=== PATIENT | male | born 1940 | race Caucasian/White ===

== ENCOUNTER 2016-11-06 08:42 | Emergency (ER) | payer OTHER ==
[~2016-11-06] VITALS: Ht 175.3 cm; Wt 94.9 kg
[~2016-11-06 08:42] MED LIST: ASPIRIN325 MG PO; ATENOLOL25 MG PO; CIPRO750 MG PO; DOXYCYCLINE HY100 MG PO; FENOFIBRATE145 M1 PO; FISH OIL 1,2001 EAC5 PO; FLAGYL500 MG PO; GEMFIBROZIL600 MG PO; HYZAAR 100-21 TABLET PO; LOVASTATIN20 MG PO; MELOXICAM15 MG PO; MOTRIN600 MG PO; MULTIVITAMIN1 EAC1 PO; NORVASC5 MG PO; SIMVASTATIN40 M1 PO; SYMBICORT60 INHALAT IH; ULTRAM50 MG PO
[2016-11-06 09:49] LABS: EOSINOPHIL (%) 1.8 % (0-5); EOSINOPHIL COUNT 0.1 K/uL (0-0.3); HEMATOCRIT 42.9 % (38.0-50.0); IMMATURE GRANULOCYTE (%) 0.7 % (0.0-0.7); IMMATURE GRANULOCYTE COUNT 0.5 K/uL; LYMPHOCYTE COUNT 1.5 K/uL (1.0-2.8); MCH 30.9 PG (29.0-34.0); MCV 90.9 FL (86-99); MEAN PLAT.VOLUME 10.3 uM^3 (9.0-12.4); MONOCYTE (%) 8.8 % (3-12); MONOCYTE COUNT 0.7 K/uL (0-0.8); NEUTROPHIL (%) 68.4 % (45-76); NEUTROPHIL COUNT 5.3 K/uL (1.8-6.4); PLATELET COUNT 272 K/uL (156-360); RBC DIS.WIDTH-CV 12.9 % (11.8-14.6); RBC DIS.WIDTH-SD 42.3 % (39-53); RED BLOOD COUNT 4.72 M/uL (4.00-5.50); WHITE BLOOD COUNT 7.7 K/uL (4.1-10.2)
[2016-11-06 10:02] LABS: CHLORIDE 107 mEq/L (99-109); POTASSIUM 4.4 mEq/L (3.7-5.4); SODIUM 140 mEq/L (136-147)
[2016-11-06 10:05] LABS: GLUCOSE 108 mg/dL (70-99)
[2016-11-06 10:06] LABS: ANION GAP 10 MEQ/L (2-14)
[2016-11-06 10:07] LABS: TOTAL BILIRUBIN 0.5 mg/dL (0.0-1.0)
[2016-11-06 10:08] LABS: ALKALINE PHOSPHATASE 70 IU/L (3-129)
[2016-11-06 10:09] LABS: GFR ESTIMATE (CALCULATED) > 59 mL/min/
[2016-11-06 10:10] LABS: UREA NITROGEN (BUN) 21 mg/dL (9-23)
[2016-11-06] MEDS ORDERED: KEFLEX500 MG PO (11:45)
[2016-11-06 12:24] VITALS: BP 119/71
== END 2016-11-06 12:25 | disposition home or self-care (01) ==
LOC: EME 08:42
PROVIDERS: Emergency Medicine
DX: R22.0 Localized swelling, mass and lump, head (principal); I10 Essential (primary) hypertension; E78.5 Hyperlipidemia, unspecified; Z79.82 Long term (current) use of aspirin; Z87.891 Personal history of nicotine dependence; Z88.2 Allergy status to sulfonamides
CPT/HCPCS: 70487; 80053; 85025; 99281; 99284